=== PATIENT | female | born 1985 | race Caucasian/White ===

== ENCOUNTER → 2017-06-23 | Outpatient (CLI) | payer BC ==
[~2017-06-23] MED LIST: CLR10 PO; OXYC-57 PO; PRENTAB26 PO
--- NOTE | 2017-06-23 09:30 | DIAGNOSTIC IMAGING REPORT ---
RIGHT SHOULDER 3 VIEWS CLINICAL HISTORY: Right shoulder pain. FINDINGS: 3 views of the right shoulder are obtained. No prior studies are available for comparison at the time of dictation. The skeletal structures are well mineralized. No fracture or dislocation is seen. The glenohumeral and acromioclavicular joints are preserved. The overlying soft tissues are within normal limits. Imaged right lung parenchyma appears clear. IMPRESSION: No acute bony abnormality is seen in the right shoulder. Electronically signed by: Chris Ron M.D. 06/23/2017 9:29 AM Dictated Date/Time: 06/23/2017 9:28 AM
== END | disposition home or self-care (01) ==
LOC: C.RDSM 14:46
PROVIDERS: ATTEND Internal Medicine
DX: M25.511 Pain in right shoulder (principal)

== ENCOUNTER 2018-10-06 18:25 | Observation (INO) ==
--- OUTSIDE RECORDS SUMMARY | 2018-10-06 18:28 | External Medical Summary | Continuity of Care Document ---
:1985 Author Name Albina Valentine, Provider Address Unavailable Unavailable , Care Team Providers Name Role Phone Jeison Augustin M.D. Unavailable [email or web address] Unavailable Unavailable Unavailable Unavailable Assessments Assessed Problems:Intraoperative bladder injuryUreteral stone Problems History of renal calculi (V13.01) (Z87.442) Status: Resolved History of Perforation of bladder (596.6) (N32.89) Status: Resolved Encounter for childbirth instruction (V65.49) (Z32.2) Counseling for initiation of control method (V25.02) ( Z30.09) Nausea (787.02) (R11.0) Renal colic (788.0) (N23) Primary female infertility (628.9) (N97.9) History of allergy (V15.09) (Z88.9) Encounter for routine gynecological exam ination with Papanicolaou smear of cervix (V72.31) (Z01.419) Allergies and Adverse Reactions No Known Drug Allergies (Allergy) Medications Loratadine 10 MG Oral Tablet Refills: 0 Vitamins TABS; Take 1 tablet daily Refills: 0 Procedures History of Oral Surgery Tooth Extraction Status: Completed Counseling for initiation of control method Encounter for childbirth instruction History of Renal Lithotripsy Status: Com pleted Immunizations Immunizations not documented Family History Mother Family history of hypertension (V17.49) (Z82.49) Status: Act hever Social History - Smoking Status Unknown if ever smoked Never smoker Interventions Follow-ups/ReferralsFollow-up as needed; Done: 19 Dec 2017Discussion/Summary Annual follow-up for kidney stones; history of bladder injury during Fortunately, she is completely asymptomatic regard to both kidney stones and bladder issuesAt this stage, I believe follow-up as needed is appropriateShe is in agreement Plan of Treatment Planned Observations Planned Goals not documented Results No Known Results Results not documented Encounters Appointment; Jeison Augustin M.D. 01-Dec-2017 16:15 Encounter Diagnosis: Problem not documented
[2018-10-06] MEDS ORDERED: SODIUM CHLORIDE 0.9% 1000ML 1,000 ML IV ONE (18:42)
[2018-10-06 19:05] LABS: Appearance Urine Clear (Clear); Bacteria Urine Automated Negative (Negative); Bilirubin Urine Negative (Negative); Blood Urine Negative (Negative); Cast Urine Automated 0 /lpf (0-5); Color Urine Yellow; Epithelial Cell Urine Auto 20-30 /lpf (0-5); Glucose Urine UA Negative (Negative); Ketones Urine Trace (Negative); Leukocyte Esterase Urine Trace (Negative); Nitrite Urine Negative (Negative); Protein Urine Negative (Negative); RBC Urine Automated 0-4 /hpf (0-4); Specific Gravity Urine 1.012 (1.000-1.030); Urobilinogen Urine Negative (Negative)
[2018-10-06 19:21] LABS: Basophils # (auto) 0.02 K/uL (0-0.2); Basophils % (auto) 0.2 %; Eosinophils # (auto) 0.08 K/uL (0-0.5); Eosinophils % (auto) 0.7 %; Hemoglobin 13.2 g/dL (12.0-16.0); Immature Granulocytes # (auto) 0.03 K/uL (0.00-0.02); Immature Granulocytes % (auto) 0.3 %; Lymphocytes # (auto) 2.82 K/uL (1.2-3.4); Lymphocytes % (auto) 26.3 %; Mean Corpuscular Hgb Conc 34.7 g/dL (32-36); Mean Corpuscular Volume 87.6 fL (80-100); Mean Platelet Volume 10.2 fL (7.4-10.4); Monocytes # (auto) 0.55 K/uL (0.11-0.59); Monocytes % (auto) 5.1 %; Neutrophils # (auto) 7.22 K/uL (1.4-6.5); Neutrophils % (auto) 67.4 %; Platelet Count 267 K/uL (130-400); RDW Coefficient of Variation 12.8 % (11.5-14.5); RDW Standard Deviation 41.3 fL (36.4-46.3); Red Blood Count 4.34 M/uL (4.2-5.4); White Blood Count 10.72 K/uL (4.8-10.8)
[2018-10-06 19:39] LABS: BUN Creatinine Ratio 14.4 (10-20); Bilirubin Direct 0.2 mg/dl (0-0.2); Calcium 8.6 mg/dl (8.5-10.1); Creatinine Clr Calc Pharmacy 79.2 ml/min; Est GFR (African American) 106.6; Potassium 3.6 mmol/L (3.5-5.1)
[2018-10-06 19:42] LABS: Bilirubin,Total 0.7 mg/dl (0.2-1); Total Protein 7.5 gm/dl (6.4-8.2)
[2018-10-06] MEDS ORDERED: IOVERSOL 100ml IV PRN (20:23)
--- NOTE | 2018-10-06 20:52 | CT Scan Report ---
CT OF THE ABDOMEN AND PELVIS WITH CONTRAST CLINICAL HISTORY: Right lower quadrant pain. Evaluate for acute appendicitis. COMPARISON STUDY: CT of the abdomen and pelvis November 05, 2015. KUB October 05, 2015. KUB December 01, 2017. TECHNIQUE: Following IV administration of 95 mL of Optiray-320, axial images of the abdomen and pelvi s were obtained from the lung bases to the proximal femurs. Images were reviewed in the axial, sagitt al, and coronal planes. IV contrast was administered without complication. Automated exposure contro l was utilized for the study. A dose lowering technique was utilized adhering to the principles of A EMMY. CT DOSE: 254.02 mGy.cm FINDINGS: Lung bases are clear. No pneumatosis, free air or portal venous gas is present. Liver, sple en, adrenal glands, kidneys and pancreas are normal. There is no peripancreatic or pericholecystic in filtration. There is no hydronephrosis. The nephrographic are symmetric. Caliber and wall thickness o f small and large bowel are normal. Trace fluid within the pelvis is probably physiologic. A 2.5 cm d ominant follicle within the left ovary is noted. The appendix is slightly dilated and fluid-filled, m easuring 7 mm in caliber. There is no periappendiceal infiltration. Is no free air or abscess. No roderick picious osseous lesions are noted. IMPRESSION: Findings equivocal for early acute appendicitis. Appendix is slightly dilated and fluid- filled. No periappendiceal infiltration. No free air or abscess. Electronically signed by: Ayo Grijalva M.D. 10/06/2018 8:51 PM
[2018-10-06] MEDS ORDERED: metroNIDAZOLE 500 MG/100 ML BAG IV STA (21:01)
[2018-10-06] MEDS ORDERED: cefTRIAXone SODIUM 1,000 MG/50 ML BAG IV STA (21:01)
--- NOTE | 2018-10-06 22:18 | Emergency Department Note ---
Entered by Chester Roy acting as a scribe for Librado Iglesias History of Present Illness General Chief complaint: Abdominal Pain Stated complaint: ABDOMINAL PAIN Time Seen by Provider: 10/06/18 18:37 Source: patient History of Present Illness Onset (ago): hour(s) (this morning) Location: abdomen (RLQ) Pain Consistency: + constant Quality: + other (worsening RLQ pain) Associated symptoms: + other (denies vaginal bleeding or discharge) The patient is a 33 year old female who presents to the Emergency Room with complaints of constant and worsening RLQ abdominal pain beginning this morning. The patient reports that her pain started in her mid-abdomen and soon traveled to her RLQ. She denies vaginal bleeding or discharge. She reports a history of kidney stones, tubal ligation, section, and surgical repair of a bladder tear. She states that she still has her gallbladder and appendix. Home Medications Home Medications Medication Instructions Recorded Confirmed Type No Known Home Medications 10/06/18 10/06/18 History Allergies Allergy/AdvReac Type Severity Reaction Status Date / Time No Known Allergies Allergy Unverified 10/06/18 19:46 Past Med/Surg History Medical History Kidney stone Surgical History S/P section (Resolved) History of tubal ligation Family History Other No significant family history Social History Feels Safe at Home: Yes Smoking Status: Never smoker Review of Systems See HPI for pertinent positives & negatives. and A total of 10 systems reviewed and were otherwise negative Physical Exam Vital Signs Vital Signs - 24 hr 10/06/18 18:28 10/06/18 21:03 Temperature 36.8 C Temperature Source Oral Sepsis Recent Fever Within 48 Hours No Sepsis Action Taken by Nursing No Action Required Pulse Rate 64 Pulse Rate [Right Finger] 61 Pulse Rhythm Regular Pulse Strength Normal Respiratory Rate 20 Respiratory Effort / Characteristics Non-Labored Spontaneous Respiratory Depth Normal Respiratory Pattern Regular Blood Pressure 120/82 Blood Pressure [Left Arm] 116/79 Blood Pressure Mean 94 Blood Pressure Mean [Left Arm] 91 Blood Pressure Position Sitting Pulse Oximetry 100 100 Oxygen Delivery Method Room Air Room Air GENERAL: She is oriented to person, place, and time. She appears well-developed and well-nourished. She does not appear distressed. HENT: Exam performed. Head: Normocephalic and atraumatic. Right Ear: External ear normal. No mastoid tenderness. Left Ear: External ear normal. No mastoid tenderness. Mouth/Throat: The oropharynx is clear and moist. No trismus in the jaw. No dental abscesses or uvula swelling. No oropharyngeal exudate or tonsillar abscesses. EYES: Conjunctivae and EOM are normal. Pupils are equal, round, and reactive to light. Right eye exhibits no discharge. Left eye exhibits no discharge. No scleral icterus. NECK: Normal range of motion. Neck supple. No JVD present. No spinous process tenderness present. No carotid bruit present. No rigidity. No tracheal deviation and normal range of motion present. No Brudzinski's sign and no Kernig's sign noted. CV: Normal rate, regular rhythm, normal heart sounds and intact distal pulses. There is no peripheral edema. Palpable radial pulses bue. PULM/CHEST: Effort normal and breath sounds normal. No respiratory distress. No stridor. She has no wheezes. She has no rales. Chest Wall: She exhibits no tenderness. ABD: The abdomen is soft. Bowel sounds are normal. She has no distension. No mass is present. There is pain on palpation of the RLQ with positive rebound tenderness. There is no guarding, no Alvarez's sign and no tenderness at McBurney's point. Rovsig negative MUSC/SKEL: Normal range of motion. There is no peripheral edema, tenderness or deformity. LYMPH: No cervical adenopathy. NEURO: She is alert and oriented to person, place, and time. She has normal strength. No cranial nerve deficit or sensory deficit. Coordination and gait normal. GCS eye subscore is 4. GCS verbal subscore is 5. GCS motor subscore is 6. cerbellar tests wnl. SKIN: Skin is warm and dry. She is not diaphoretic. PSYCH: She has a normal mood and affect. Her behavior is normal. Judgment and thought content normal. Course 1838: The patient was evaluated in room B5. A complete history and physical examination were performed. 2101: Vital signs stable. Labs within normal limits. CT of the abdomen showed acute appendicitis. I consulted Dr. Villalta General Surgery. He will ev aluate the patient. The patient is being treated with Rocephin and Flagyl IV piggyback started in the emergency department. Administered Medications Ioversol (Optiray 320 100ml) 95 ml IV ONCE PRN PRN Reason: Interaction Checking Stop: 10/10/18 20:22 Last Admin: 10/06/18 20:23 Dose: 95 ml Documented by: [id number] Discontinued Medications Sodium Chloride (Nss 1000ml) 1,000 mls @ 999 mls/hr IV .Q1H1M ONE Stop: 10/06/18 19:42 Last Infusion: 10/06/18 20:28 Dose: 0 mls/hr Documented by: [id number] Admin: 10/06/18 19:17 Dose: 999 mls/hr Documented by: [id number] Metronidazole (Flagyl) 500 mg in 100 mls @ 100 mls/hr IV NOW STA Stop: 10/06/18 22:00 Last Admin: 10/06/18 21:30 Dose: 100 mls/hr Documented by: [id number] Ceftriaxone Sodium (Rocephin) 1,000 mg in 50 mls @ 100 mls/hr IV NOW STA Stop: 10/06/18 21:30 Last Infusion: 10/06/18 22:14 Dose: 0 mls/hr Documented by: [id number] Admin: 10/06/18 21:30 Dose: 100 mls/hr Documented by: [id number] Medical Decision Making Medical Records Attestation: I reviewed the patient's medical records. Home Medications Current Medication List: was personally reviewed by me Laboratory Data Attestation: I reviewed the patient's lab results. Result diagrams: 10/06/18 19:13 10/06/18 19:13 Lab Results 10/06/18 10/06/18 10/06/18 Range/Units 18:45 18:45 19:13 WBC 10.72 (4.8-10.8) K/uL RBC 4.34 (4.2-5.4) M/uL Hgb 13.2 (12.0-16.0) g/dL Hct 38.0 (37-47) % MCV 87.6 (80-100) fL MCH 30.4 (25-34) pg MCHC 34.7 (32-36) g/dL RDW Std Deviation 41.3 (36.4-46.3) fL RDW Coeff of Reed 12.8 (11.5-14.5) % Plt Count 267 (130-400) K/uL MPV 10.2 (7.4-10.4) fL Immature Gran % (Auto) 0.3 % Neut % (Auto) 67.4 % Lymph % (Auto) 26.3 % [place] % (Auto) 5.1 % Eos % (Auto) 0.7 % Baso % (Auto) 0.2 % Immature Gran # (Auto) 0.03 H (0.00-0.02) K/uL Neut # (Auto) 7.22 H (1.4-6.5) K/uL Lymph # (Auto) 2.82 (1.2-3.4) K/uL [place] # (Auto) 0.55 (0.11-0.59) K/uL Eos # (Auto) 0.08 (0-0.5) K/uL Baso # (Auto) 0.02 (0-0.2) K/uL Sodium (136-145) mmol/L Potassium (3.5-5.1) mmol/L Chloride (98-107) mmol/L Carbon Dioxide (21-32) mmol/L Anion Gap (3-11) BUN (7-18) mg/dl Creatinine (0.6-1.2) mg/dl Est Cr Clr Drug Dosing ml/min Est GFR ( Amer) Est GFR (Non-Af Amer) BUN/Creatinine Ratio (10-20) Glucose (70-99) mg/dl Calcium (8.5-10.1) mg/dl Total Bilirubin (0.2-1) mg/dl Direct Bilirubin (0-0.2) mg/dl AST (15-37) U/L ALT (12-78) U/L Alkaline Phosphatase (45-117) U/L Total Protein (6.4-8.2) gm/dl Albumin (3.4-5.0) gm/dl Lipase (73-393) U/L Urine Color Yellow Urine Appearance Clear (Clear) Urine pH 8.0 H (4.5-7.5) Ur Specific [place] 1.012 (1.000-1.030) Urine Protein Negative (Negative) Urine Glucose (UA) Negative (Negative) Urine Ketones Trace H (Negative) Urine Blood Negative (Negative) Urine Nitrite Negative (Negative) Urine Bilirubin Negative (Negative) Urine Urobilinogen Negative (Negative) Ur Leukocyte Esterase Trace H (Negative) Urine WBC (Auto) 1-5 (0-5) /hpf Urine RBC (Auto) 0-4 (0-4) /hpf U Hyaline Cast (Auto) 0 (0-5) /lpf U Epithel Cells (Auto) 20-30 H (0-5) /lpf Urine Bacteria (Auto) Negative (Negative) POC Ur Test NEG (NEG) 10/06/18 Range/Units 19:13 WBC (4.8-10.8) K/uL RBC (4.2-5.4) M/uL Hgb (12.0-16.0) g/dL Hct (37-47) % MCV (80-100) fL MCH (25-34) pg MCHC (32-36) g/dL RDW Std Deviation (36.4-46.3) fL RDW Coeff of Reed (11.5-14.5) % Plt Count (130-400) K/uL MPV (7.4-10.4) fL Immature Gran % (Auto) % Neut % (Auto) % Lymph % (Auto) % [place] % (Auto) % Eos % (Auto) % Baso % (Auto) % Immature Gran # (Auto) (0.00-0.02) K/uL Neut # (Auto) (1.4-6.5) K/uL Lymph # (Auto) (1.2-3.4) K/uL [place] # (Auto) (0.11-0.59) K/uL Eos # (Auto) (0-0.5) K/uL Baso # (Auto) (0-0.2) K/uL Sodium 137 (136-145) mmol/L Potassium 3.6 (3.5-5.1) mmol/L Chloride 107 (98-107) mmol/L Carbon Dioxide 25 (21-32) mmol/L Anion Gap 5.0 (3-11) BUN 12 (7-18) mg/dl Creatinine 0.83 (0.6-1.2) mg/dl Est Cr Clr Drug Dosing 79.2 ml/min Est GFR ( Amer) 106.6 Est GFR (Non-Af Amer) 92.0 BUN/Creatinine Ratio 14.4 (10-20) Glucose 79 (70-99) mg/dl Calcium 8.6 (8.5-10.1) mg/dl Total Bilirubin 0.7 (0.2-1) mg/dl Direct Bilirubin 0.2 (0-0.2) mg/dl AST 11 L (15-37) U/L ALT 18 (12-78) U/L Alkaline Phosphatase 63 (45-117) U/L Total Protein 7.5 (6.4-8.2) gm/dl Albumin 4.0 (3.4-5.0) gm/dl Lipase 129 (73-393) U/L Urine Color Urine Appearance (Clear) Urine pH (4.5-7.5) Ur Specific [place] (1.000-1.030) Urine Protein (Negative) Urine Glucose (UA) (Negative) Urine Ketones (Negative) Urine Blood (Negative) Urine Nitrite (Negative) Urine Bilirubin (Negative) Urine Urobilinogen (Negative) Ur Leukocyte Esterase (Negative) Urine WBC (Auto) (0-5) /hpf Urine RBC (Auto) (0-4) /hpf U Hyaline Cast (Auto) (0-5) /lpf U Epithel Cells (Auto) (0-5) /lpf Urine Bacteria (Auto) (Negative) POC Ur Test (NEG) Imaging Data Radiologist's Impression: Radiology results as stated below per my review and the radiologist's interpretation: CT OF THE ABDOMEN AND PELVIS WITH CONTRAST CLINICAL HISTORY: Right lower quadrant pain. Evaluate for acute appendicitis. COMPARISON STUDY: CT of the abdomen and pelvis November 05, 2015. KUB October 05, 2015. KUB December 01, 2017. TECHNIQUE: Following IV administration of 95 mL of Optiray-320, axial images of the abdomen and pelvis were obtained from the lung bases to the proximal femurs. Images were reviewed in the axial, sagittal, and coronal planes. IV contrast was administered without complication. Automated exposure control was utilized for the study. A dose lowering technique was utilized adhering to the principles of ALARA. CT DOSE: 254.02 mGy.cm FINDINGS: Lung bases are clear. No pneumatosis, free air or portal venous gas is present. Liver, spleen, adrenal glands, kidneys and pancreas are normal. There is no peripancreatic or pericholecystic infiltration. There is no hydronephrosis. The nephrographic are symmetric. Caliber and wall thickness of small and large bowel are normal. Trace fluid within the pelvis is probably physiologic. A 2.5 cm dominant follicle within the left ovary is noted. The appendix is slightly dilated and fluid-filled, measuring 7 mm in caliber. There is no periappendiceal infiltration. Is no free air or abscess. No suspicious osseous lesions are noted. IMPRESSION: Findings equivocal for early acute appendicitis. Appendix is slightly dilated and fluid-filled. No periappendiceal infiltration. No free air or abscess. Electronically signed by: Ayo Grijalva M.D. 10/06/2018 8:51 PM Blood Pressure Blood Pressure Findings: Normal blood pressure Blood Pressure Disposition: did not require urgent referral MDM Narrative Vital signs stable. Labs within normal limits. CT of the abdomen showed acute appendicitis. I consulted Dr. Villalta General Surgery. He will evaluate the patient. The patient is being treated with Rocephin and Flagyl IV piggyback started in the emergency department. Impression & Plan Appendicitis Discharge Plan Visit Data Chief Complaint: Abdominal Pain Stated Complaint: ABDOMINAL PAIN ED Provider: Librado Iglesias Discharge Problem: Appendicitis Patient Disposition: Being Evaluated by Surgeon Forms Stand Alone Forms: Call Back Authorization, My [facility] Prescriptions Prescriptions: No Action No Known Home Medications RF: 0 Referrals Referrals: Dirk Reeves DO [Primary Care Provider] - Discharge Problem: Appendicitis Qualifiers: Appendicitis type: unspecified Qualified Code(s): K37 - Unspecified appendicitis The scribe's documentation has been prepared under my direction and personally reviewed by me in its entirety. I confirm that the note above accurately reflects all work, treatment, procedures, and medical decision making performed by me.
[2018-10-06] MEDS ORDERED: fentaNYL citrate 100 MCG/2 ML VIAL ONE (22:30)
[2018-10-06] MEDS ORDERED: MIDAZOLAM HCL 1 MG/ML 2ML VIAL ONE (22:30)
--- NOTE | 2018-10-06 22:38 | Anesthesiology Consultation ---
Date of Service October 06, 2018 Assessment & Plan Chart Review Chart Review: Acceptable Risk for Surgery (Emergency) and Patient NOT seen in Pre Admission Testing Consults Requested none ASA [id number] Proposed Anesthesia Anesthesia Type: General Risk / Benefits Reviewed With: PT / POA / Parent / Guardian, Accepts Plan and Informed Consent Obtained Additional Comments: R/b of GETA discussed with patient including risk of aspiration. All questions and answered. Pt accepting risks and willing to proceed with procedure. Consent was signed and witnessed History Surgery Operation Date: 10/06/18 22:35 Proposed Procedures p Laparoscopic Appendectomy - Jackson Villalta MD Height/Weight Height: 1.55 m Weight: 59.6 kg Allergies Allergy/AdvReac Type Severity Reaction Status Date / Time No Known Allergies Allergy Unverified 10/06/18 19:46 Medications Home Medications Medication Instructions Recorded Confirmed Last Taken No Known Home Medications 10/06/18 10/06/18 Unknown Active Medications Generic Name Dose Route Start Last Admin Trade Name Freq PRN Reason Stop Dose Admin Ioversol 95 ml 10/06/18 20:23 10/06/18 20:23 Optiray 320 100ml IV 10/10/18 20:22 95 ml ONCE PRN Administration Interaction Checking NPO Date Last Intake of Fluids: 10/06/18 Time Last Intake of Fluids: 18:00 Last Intake of Fluids Comment: 1oz of water Date Last Intake of Solids: 10/06/18 Time Last Intake of Solids: 12:45 Exercise / Class Metabolic Activity II 4-5 Yardwork/Stairs/Walk up hill Past Family History Family History Other No significant family history Past Anesthesia History No Hx of Anesthesia Complications and No Family Hx of Anesthesia Complications History of PONV No Hx of PONV and No Hx of Motion Sickness Social History Smoking Status: Never smoker Do You Dip or Chew Tobacco: No Hx Alcohol Use: No Hx Substance Use: No Review of Systems Respiratory: no cough Cardiovascular: no chest pain with activity and no dyspnea on exertion Gastrointestinal: no nausea and no vomiting Physical Exam Vital Signs Last Vital Signs Temp 36.8 C 10/06/18 18:28 Pulse 50 L 10/06/18 23:08 Resp 16 10/06/18 23:08 BP 105/69 10/06/18 23:08 Pulse Ox 99 10/06/18 23:08 ENMT Mouth: no TMJ abnormality and no TMJ clicking Thyromental Distance: > or= 3.5 Finger Breadths Mallampati Class: II Neck normal visual inspection; neck extension not limited Respiratory Auscultation: lungs clear to auscultation bilaterally Cardiovascular Rate/Rhythm: regular rhythm and + bradycardic (Sinus johnny) Psychiatric Orientation: alert and oriented x 3 Testing Laboratory Results 10/06/18 19:13 10/06/18 19:13 Urine Color Yellow 10/06/18 18:45 Urine Appearance Clear (Clear) 10/06/18 18:45 Urine pH 8.0 (4.5-7.5) H 10/06/18 18:45 Ur Specific [place] 1.012 (1.000-1.030) 10/06/18 18:45 Urine Protein Negative (Negative) 10/06/18 18:45 Urine Glucose (UA) Negative (Negative) 10/06/18 18:45 Urine Ketones Trace (Negative) H 10/06/18 18:45 Urine Nitrite Negative (Negative) 10/06/18 18:45 Ur Leukocyte Esterase Trace (Negative) H 10/06/18 18:45 Urine WBC (Auto) 1-5 /hpf (0-5) 10/06/18 18:45 Urine RBC (Auto) 0-4 /hpf (0-4) 10/06/18 18:45 U Hyaline Cast (Auto) 0 /lpf (0-5) 10/06/18 18:45 U Epithel Cells (Auto) 20-30 /lpf (0-5) H 10/06/18 18:45 Urine Bacteria (Auto) Negative (Negative) 10/06/18 18:45 10/06/18 18:45 POC Ur Test NEG
[2018-10-06] MEDS ORDERED: BUPIVACAINE 0.5 % 5 MG/1 ML MPF 30ML VIAL ONE (23:12)
[2018-10-06] MEDS ORDERED: HEPARIN (PORCINE) 1000 UNIT/ML 10 ML (CATH LAB USE ONLY) ONE (23:13)
[2018-10-06] MEDS ORDERED: CEFAZOLIN 250 MG/ML 1 GM VIAL ONE (23:13)
[2018-10-06] MEDS ORDERED: PROPOFOL IV EMULSION 10 MG/ML 20 ML VIAL IV ONE (23:29)
[2018-10-06] MEDS ORDERED: ONDANSETRON INJ 2 MG/ML 2 ML VIAL ONE (23:29)
[2018-10-06] MEDS ORDERED: SUCCINYLCHOLINE CHLORIDE 20 MG/ML 10 ML VIAL ONE (23:29)
[2018-10-06] MEDS ORDERED: LIDOCAINE HCL 2% 2 ML VIAL/AMP(20MG/ML) INFIL ONE ×2 (23:29)
[2018-10-06] MEDS ORDERED: DEXAMETHASONE SOD INJ 4 MG/ML VIAL ONE (23:29)
[2018-10-06] MEDS ORDERED: PHENYLEPHRINE 100MCG/ML 5ML SYR IV PRN (23:34)
[2018-10-06] MEDS ORDERED: PROMETHAZINE HCL 12.5 MG in SODIUM CHLORIDE 0.9% 50 ML IV PRN (23:34)
[2018-10-06] MEDS ORDERED: ATROPINE SULFATE 0.1 MG/ML 10ML SYR IV PRN (23:34)
[2018-10-06] MEDS ORDERED: ePHEDrine sulfate 50 MG/ML AMP IV PRN (23:34)
[2018-10-06] MEDS ORDERED: ONDANSETRON INJ 2 MG/ML 2 ML VIAL IV PRN (23:34)
[2018-10-06] MEDS ORDERED: HYDROmorphone INJ 1 MG/ML SYRINGE IV PRN (23:34)
--- NOTE | 2018-10-06 23:53 | History & Physical Report ---
Date of Service October 06, 2018 Assessment & Plan (1) Appendicitis: This patient's history, physical findings, laboratories and CT findings are consistent with appendicitis. I reviewed the images as well as the report we discussed options that included admission with antibiotics versus appendec sree. I explained the pros and cons of each of these procedures. I discussed the laparoscopic appendectomy and I explained the possible need to convert to an open procedure. I explained the possible complications associated with those procedures. The patient wishes to go ahead with surgery and has signed a consent form. History of Present Illness Chief Complaint: Right lower quadrant abdominal pain Primary Care Provider: Dirk Reeves DO Is a 33-year-old female who presented to the emergency room with a complaint of right lower quadrant abdominal pain. It began about 14 hours ago in the epigastric area. As the day progressed the pain became more severe. Initially it was more like a dull ache. It also migrated to the right lower quadrant where it is located at the present time. It does not radiate. She is never had pain like this before. Motion does exacerbate the pain. She has not had an appetite all day but she has not had any nausea or vomiting. She denies fever and chills. She has not had a change in her bowel habits. There is no melena or hematochezia. She denies dysuria and hematuria. Allergies Allergy/AdvReac Type Severity Reaction Status Date / Time No Known Allergies Allergy Unverified 10/06/18 19:46 Home Medications Home Medications Medication Instructions Recorded Confirmed Type No Known Home Medications 10/06/18 10/06/18 History Past Med/Surg History Medical History Appendicitis (Acute) Kidney stone Surgical History S/P section (Resolved) X 2 H/O lithotripsy History of tubal ligation S/P bladder repair Family History Other No significant family history Social History Feels Safe at Home: Yes Smoking Status: Never smoker Do You Dip or Chew Tobacco: No Hx Alcohol Use: No Hx Substance Use: No Review of Systems Review of Systems: All systems reviewed & are unremarkable except as noted in HPI & below Physical Exam Constitutional: well developed; no acute distress Neck: trachea midline Respiratory: normal respiratory effort, lungs clear to auscultation Cardiovascular: Rate/Rhythm: regular rate and regular rhythm Gastrointestinal (Abdomen): Inspection/Auscultation: normal bowel sounds; abdomen not distended Percussion/Palpation: + abdomen tender (Right lower quadrant to mild to moderate palpation) and abdomen soft Skin: no rashes, warm and dry Lymphatic: no cervical lymphadenopathy Results & Data Vital Signs (Past 12 Hours) Vital Signs Temp Pulse Pulse Resp BP BP Pulse Ox 10/06/18 23:08 50 L 16 105/69 99 10/06/18 21:03 61 116/79 100 10/06/18 18:28 36.8 C 64 20 120/82 100 Laboratory Results 10/06/18 10/06/18 10/06/18 Range/Units 19:13 19:13 18:45 WBC 10.72 (4.8-10.8) K/uL RBC 4.34 (4.2-5.4) M/uL Hgb 13.2 (12.0-16.0) g/dL Hct 38.0 (37-47) % MCV 87.6 (80-100) fL MCH 30.4 (25-34) pg MCHC 34.7 (32-36) g/dL RDW Std Deviation 41.3 (36.4-46.3) fL RDW Coeff of Reed 12.8 (11.5-14.5) % Plt Count 267 (130-400) K/uL MPV 10.2 (7.4-10.4) fL Immature Gran % (Auto) 0.3 % Neut % (Auto) 67.4 % Lymph % (Auto) 26.3 % [place] % (Auto) 5.1 % Eos % (Auto) 0.7 % Baso % (Auto) 0.2 % Immature Gran # (Auto) 0.03 H (0.00-0.02) K/uL Neut # (Auto) 7.22 H (1.4-6.5) K/uL Lymph # (Auto) 2.82 (1.2-3.4) K/uL [place] # (Auto) 0.55 (0.11-0.59) K/uL Eos # (Auto) 0.08 (0-0.5) K/uL Baso # (Auto) 0.02 (0-0.2) K/uL Sodium 137 (136-145) mmol/L Potassium 3.6 (3.5-5.1) mmol/L Chloride 107 (98-107) mmol/L Carbon Dioxide 25 (21-32) mmol/L Anion Gap 5.0 (3-11) BUN 12 (7-18) mg/dl Creatinine 0.83 (0.6-1.2) mg/dl Est Cr Clr Drug Dosing 79.2 ml/min Est GFR ( Amer) 106.6 Est GFR (Non-Af Amer) 92.0 BUN/Creatinine Ratio 14.4 (10-20) Glucose 79 (70-99) mg/dl Calcium 8.6 (8.5-10.1) mg/dl Total Bilirubin 0.7 (0.2-1) mg/dl Direct Bilirubin 0.2 (0-0.2) mg/dl AST 11 L (15-37) U/L ALT 18 (12-78) U/L Alkaline Phosphatase 63 (45-117) U/L Total Protein 7.5 (6.4-8.2) gm/dl Albumin 4.0 (3.4-5.0) gm/dl Lipase 129 (73-393) U/L Urine Color Urine Appearance (Clear) Urine pH (4.5-7.5) Ur Specific [place] (1.000-1.030) Urine Protein (Negative) Urine Glucose (UA) (Negative) Urine Ketones (Negative) Urine Blood (Negative) Urine Nitrite (Negative) Urine Bilirubin (Negative) Urine Urobilinogen (Negative) Ur Leukocyte Esterase (Negative) Urine WBC (Auto) (0-5) /hpf Urine RBC (Auto) (0-4) /hpf U Hyaline Cast (Auto) (0-5) /lpf U Epithel Cells (Auto) (0-5) /lpf Urine Bacteria (Auto) (Negative) POC Ur Test NEG (NEG) 10/06/18 Range/Units 18:45 WBC (4.8-10.8) K/uL RBC (4.2-5.4) M/uL Hgb (12.0-16.0) g/dL Hct (37-47) % MCV (80-100) fL MCH (25-34) pg MCHC (32-36) g/dL RDW Std Deviation (36.4-46.3) fL RDW Coeff of Reed (11.5-14.5) % Plt Count (130-400) K/uL MPV (7.4-10.4) fL Immature Gran % (Auto) % Neut % (Auto) % Lymph % (Auto) % [place] % (Auto) % Eos % (Auto) % Baso % (Auto) % Immature Gran # (Auto) (0.00-0.02) K/uL Neut # (Auto) (1.4-6.5) K/uL Lymph # (Auto) (1.2-3.4) K/uL [place] # (Auto) (0.11-0.59) K/uL Eos # (Auto) (0-0.5) K/uL Baso # (Auto) (0-0.2) K/uL Sodium (136-145) mmol/L Potassium (3.5-5.1) mmol/L Chloride (98-107) mmol/L Carbon Dioxide (21-32) mmol/L Anion Gap (3-11) BUN (7-18) mg/dl Creatinine (0.6-1.2) mg/dl Est Cr Clr Drug Dosing ml/min Est GFR ( Amer) Est GFR (Non-Af Amer) BUN/Creatinine Ratio (10-20) Glucose (70-99) mg/dl Calcium (8.5-10.1) mg/dl Total Bilirubin (0.2-1) mg/dl Direct Bilirubin (0-0.2) mg/dl AST (15-37) U/L ALT (12-78) U/L Alkaline Phosphatase (45-117) U/L Total Protein (6.4-8.2) gm/dl Albumin (3.4-5.0) gm/dl Lipase (73-393) U/L Urine Color Yellow Urine Appearance Clear (Clear) Urine pH 8.0 H (4.5-7.5) Ur Specific [place] 1.012 (1.000-1.030) Urine Protein Negative (Negative) Urine Glucose (UA) Negative (Negative) Urine Ketones Trace H (Negative) Urine Blood Negative (Negative) Urine Nitrite Negative (Negative) Urine Bilirubin Negative (Negative) Urine Urobilinogen Negative (Negative) Ur Leukocyte Esterase Trace H (Negative) Urine WBC (Auto) 1-5 (0-5) /hpf Urine RBC (Auto) 0-4 (0-4) /hpf U Hyaline Cast (Auto) 0 (0-5) /lpf U Epithel Cells (Auto) 20-30 H (0-5) /lpf Urine Bacteria (Auto) Negative (Negative) POC Ur Test (NEG) Diagnostic Findings [place], [place] [phone] CT Scan Report Patient: ROBERT BENÍTEZ Date: 10/06/18 MR#: [id number]: [address] Acct ID:[id number]: Date: 1985City Zip: [place] [address] Age: 33Location: ED Sex: F Room/Bed: Att Phy: Diagnosis: ABDOMINAL PAIN Hayley Phy: Dirk Reeves D.O.Service Date: 10/06/18 Fam Phy: Interpreting Phy: Ayo Grijalva MD Admit Phy: Ordering Phy: Librado Iglesias M.D. cc: ~ CT OF THE ABDOMEN AND PELVIS WITH CONTRAST CLINICAL HISTORY: Right lower quadrant pain. Evaluate for acute appendicitis. COMPARISON STUDY: CT of the abdomen and pelvis November 05, 2015. KUB October 05, 2015. KUB December 01, 2017. TECHNIQUE: Following IV administration of 95 mL of Optiray-320, axial images of the abdomen and pelvis were obtained from the lung bases to the proximal femurs. Images were reviewed in the axial, sagittal, and coronal planes. IV contrast was administered without complication. Automated exposure control was utilized for the study. A dose lowering technique was utilized adhering to the principles of ALARA. CT DOSE: 254.02 mGy.cm FINDINGS: Lung bases are clear. No pneumatosis, free air or portal venous gas is present. Liver, spleen, adrenal glands, kidneys and pancreas are normal. There is no peripancreatic or pericholecystic infiltration. There is no hydronephrosis. The nephrographic are symmetric. Caliber and wall thickness of small and large bowel are normal. Trace fluid within the pelvis is probably physiologic. A 2.5 cm dominant follicle within the left ovary is noted. The appendix is slightly dilated and fluid-filled, measuring 7 mm in caliber. There is no periappendiceal infiltration. Is no free air or abscess. No suspicious osseous lesions are noted. IMPRESSION: Findings equivocal for early acute appendicitis. Appendix is slightly dilated and fluid-filled. No periappendiceal infiltration. No free air or abscess. (1) Appendicitis Appendicitis type: unspecified Qualified Code(s): K37 - Unspecified appendicitis
[2018-10-07] MEDS ORDERED: GLYCOPYRROLATE 0.2 MG/ML VIAL ONE (00:29)
[2018-10-07] MEDS ORDERED: NEOSTIGMINE METHYLSULFATE 5 MG/5 ML SYR ONE (00:29)
--- NOTE | 2018-10-07 01:20 | Post Operative Brief Note ---
Immediate Post Op Note v1 Date of Surgery October 07, 2018 Pre & Post Diagnosis Operation Date: 10/06/18 22:35 Pre-Op Diagnosis: Appendicitis Post-Op Diagnosis: Appendicitis Procedure Operation Date: 10/06/18 22:35 Actual Procedures p Laparoscopic Appendectomy(Not Applicable) - Jackson Villalta MD Surgeon Jackson Villalta MD Web Administrator None Estimated Blood Loss 5 Findings Consistent with Post-Op Diagnosis Specimens Appendix Drains Hodges Catheter (inserted by Ryan Khan RN and removed at end of procedure) Complications none
[2018-10-07] MEDS ORDERED: fentaNYL citrate 100 MCG/2 ML VIAL ONE (01:43)
[2018-10-07] MEDS: fentaNYL citrate 100 MCG/2 ML VIAL IV PRN ×2 (01:44→01:56)
--- NOTE | 2018-10-07 02:06 | Operative Report ---
DATE OF OPERATION: 10/07/2018 PREOPERATIVE DIAGNOSIS: Appendicitis. POSTOPERATIVE DIAGNOSIS: Appendicitis. PROCEDURE: Laparoscopic appendectomy. SURGEON: Jackson Villalta MD FINDINGS: The appendix was mildly dilated. It was firm and hyperemic. The base of the appendix and the cecum at the base of the appendix were normal. The visible bowel appeared normal. The uterus was oval in shape and was adherent to the anterior abdominal wall. There was a small cyst on the right ovary and the large cyst on the left ovary. The visible bowel appeared normal. TECHNIQUE: The patient was given a general anesthetic and the area is prepped and draped in usual sterile fashion. Transverse incision was made below the umbilicus, carried down through the subcutaneous tissue to the fascia which was grasped with 2 Duarte clamps and incised between. The peritoneum was identified, incised, and the introducer was placed bluntly. The abdomen was then insufflated to a pressure of 15 mmHg with carbon dioxide. The uterus was seen adherent to the anterior abdominal wall. Therefore, I went to the right of that and made an incision through the previous scar and placed a 5 mm introducer under direct vision without difficulty. The right lower quadrant was inspected. Medial traction was placed on the cecum and the appendix was identified. The left lower quadrant introducer was then placed under direct vision. Traction was placed anteriorly on the appendix. There were some adhesions to the lateral and posterior abdominal wall that were flimsy. These were divided bluntly. That allowed me to further elevate the appendix away from the surrounding structures including the cecum. It allowed me to identify the base of the appendix. I was then able to establish a plane between the base of the appendix and the mesoappendix and divided the mesoappendix with the Endo-VERENICE stapler. That allowed me to confirm I was at the base of the appendix which was then amputated off the cecum with the Endo-VERENICE stapler. The appendix was placed into an Endobag and brought out through the left lower quadrant introducer site. The introducer was replaced. The right lower quadrant was inspected. The 2 staple lines were inspected and there was no bleeding. There was small amount of blood in the pelvis. It appeared to have come from the left lower quadrant introducer site, but there was no active bleeding. That blood was removed. The pelvis structures were photographed. The right upper quadrant was inspected. There was no fluid there. The staple lines were again inspected and there was no bleeding. The gas was allowed to escape and introducers were removed. The fascia of the umbilical and left lower quadrant introducer sites was closed with interrupted 0 Vicryl and the skin of all the incisions was closed with 4-0 Monocryl in either an interrupted or running subcuticular fashion. The skin was anesthetized with 0.5% Marcaine. The skin was cleansed, dried, benzoin placed, Steri-Strips applied. Estimated blood loss was 5 mL. Sponge, needle and instrument counts were correct prior to closure. The patient tolerated the surgical procedure without complication and was transferred to recovery. I attest to the content of the Intraoperative Record and any orders documented therein. Any exception s are noted below.
--- NOTE | 2018-10-07 02:23 | Anesthesiology Progress Note ---
Date of Service October 07, 2018 Anesthesia Post Procedure Vital Signs Vital Signs: Temp Pulse Pulse Resp BP BP Pulse Ox 10/07/18 02:15 58 L 16 112/73 97 10/07/18 02:05 36.7 C 52 L 16 113/72 97 10/07/18 01:55 52 L 16 121/84 100 10/07/18 01:45 53 L 16 117/78 100 10/07/18 01:35 36.4 C L 53 L 14 107/64 100 10/07/18 01:25 36.4 C L 53 L 14 103/65 100 10/06/18 23:08 50 L 16 105/69 99 10/06/18 21:03 61 116/79 100 10/06/18 18:28 36.8 C 64 20 120/82 100 Pain Intensity Right Lower Abdomen: Pain Intensity: 2 Transfer of Care Handoff Completed per policy Notes Mental Status: alert / awake / arousable Patient Amnestic to Procedure: Yes Nausea / Vomiting: adequately controlled Pain: adequately controlled Airway Patency, RR, SpO2: stable & adequate BP & HR: stable & adequate Hydration State: stable & adequate Anesthetic Complications: no major complications apparent
[2018-10-07] MEDS ORDERED: ONDANSETRON INJ 2 MG/ML 2 ML VIAL IV PRN (02:38)
[2018-10-07] MEDS ORDERED: OXYCODONE/ACETAMINOPHEN 5mg/325mg TAB PO PRN (02:38)
[2018-10-07] MEDS ORDERED: MoRPHine SULFATE 4 MG/ML 1 ML CARP\\VIAL IV PRN (02:38)
[2018-10-07] MEDS ORDERED: D5W AND 1/2NSS + 20MEQ KCL 20 MEQ/1,000 ML BAG IV SCH (03:00)
--- NOTE | 2018-10-07 09:00 | Surgery Progress Note ---
Date of Service October 07, 2018 Assessment & Plan (1) Appendicitis: Postop day 0, status post laparoscopic appendectomy Pain under good control at this time No nausea and tolerating regular diet Can discharge to home Instructions discussed Follow-up in 2 weeks Subjective Postoperative day 0 Had nausea and pain that was more difficult to control last night but the present time she describes pain of 1 out of 10 and her last analgesic dose was a t least 5 hours ago Nausea has resolved Tolerated a regular breakfast this morning Physical Exam Gastrointestinal (Abdomen): Inspection/Auscultation: normal bowel sounds; abdomen not distended Percussion/Palpation: + abdomen tender (Mild) and abdomen soft Results & Data Vital Signs (Past 12 Hours) Vital Signs Temp Pulse Resp BP Pulse Ox 10/07/18 07:45 36.6 C 54 L 16 106/68 99 10/07/18 05:20 36.8 C 70 18 119/72 96 10/07/18 02:50 36.6 C 63 16 112/75 97 10/07/18 02:30 36.9 C 62 16 112/74 98 10/07/18 02:15 58 L 16 112/73 97 10/07/18 02:05 36.7 C 52 L 16 113/72 97 10/07/18 01:55 52 L 16 121/84 100 10/07/18 01:45 53 L 16 117/78 100 10/07/18 01:35 36.4 C L 53 L 14 107/64 100 10/07/18 01:25 36.4 C L 53 L 14 103/65 100 10/06/18 23:08 50 L 16 105/69 99 10/06/18 21:03 61 116/79 100 (1) Appendicitis Appendicitis type: unspecified Qualified Code(s): K37 - Unspecified appendicitis
--- NOTE | 2018-10-08 15:48 | Discharge Summary ---
Date of Service October 08, 2018 Admission HPI Per Admitting Provider Is a 33-year-old female who presented to the emergency room with a complaint of right lower quadrant abdominal pain. It began about 14 hours ago in the epigastric area. As the day progressed the pain became more severe. Initially it was more like a dull ache. It also migrated to the right lower quadrant where it is located at the present time. It does not radiate. She is never had pain like this before. Motion does exacerbate the pain. She has not had an appetite all day but she has not had any nausea or vomiting. She denies fever and chills. She has not had a change in her bowel habits. There is no melena or hematochezia. She denies dysuria and hematuria. Principal Diagnosis acute appendicitis large left ovarian cyst Discharge Data Allergies Allergy/AdvReac Type Severity Reaction Status Date / Time No Known Allergies Allergy Unverified 10/06/18 19:46 Consultations 10/06/18 21:02 ED Decision to Admit Stat Procedures Performed Operation Date: 10/06/18 22:35 Actual Procedures p Laparoscopic Appendectomy(Not Applicable) - Jackson Villalta MD Ordered Studies 10/06/18 18:43 CT abd pelvis IV con only Stat Hospital Course (1) Appendicitis: Patient was taken to operating room for laparoscopic appendectomy possible open by Dr. Villalta. Patient found to have acute appendicitis without perforation or abscess. Patient's uterus was adhered to the anterior abdominal wall and she also had a very large left ovarian cyst. Patient tolerated procedure well and was transferred to recovery and then to medical/surgical floor for postop care. Diet was advanced to regular diet. IV fluids, PO Percocet , IV Zofran , activity as tolerated were continued. Postop day 0, patient doing well. Vitals stable. minimal pain. No nausea or vomiting. Tolerating regular diet. Patient was discharged home on POD # 0 in stable condition. Advised to follow-up with PCP in regards to getting set up with preventive maintenance coordinator to further evaluate ovarian cysts. Total Time Total Time Spent Total Time Spent (In Minutes): 15 Total Time Includes: Examination of the Patient, Discharge Planning and Medication Reconciliation Discharge Plan Discharge Items Patient Disposition: Home - Self-Care Reason For Visit: APPENDITICITIS Discharge Diagnosis: Same Large Left Ovarian Cyst Right Ovarian Cyst Discharge Goals: Decrease discomfort and Improve function Activity: Per 'Additional Instructions' section Non-emergency contact: Surgeon Call non-emergency contact if: your symptoms worsen, your pain is not controlled, your pain is worsening, your pain is concerning for you, you have a fever, your temperature is above 101, your wound has increased redness and your wound has increased drainage Follow-up/Referrals: Dirk Reeves, [Primary Care Provider] - Diet: Regular Addtl Provider Instructions: Post-Surgical ~Discharge Instructions Activity Recommendations: - lifting limitation: (10 pounds for 2 weeks), - exercise/sex/sports limit: (nonstrenuous for 2 weeks), - driving or machine use limit: (none for 1 week), - Shower/bathe limit: (may shower beginning tomorrow) Diet: - Resume previous diet SPECIAL CARE INSTRUCTIONS: - May shower in 24 hours. Let water run over area and pat dry. - Leave steri strips on for one week. - Call the surgeon's office with any questions or concerns - - (ex. temperature higher than 101 degrees F, excessive bleeding or pain). MEDICATIONS: - Resume previous medications unless instructed otherwise by your surgeon. - Ibuprofen 600 mg every 6 hours with food - May take Extra strength Tylenol (650 mg) as needed for mild pain - Percocet 1 every 4 hours, as needed for pain FOLLOW UP VISIT: - If not already scheduled, please call the office to schedule a two week follow-up appointment. Office number - Also recommend discussing with your primary care doctor in regards to getting established with Distribution [facility] Associate to evaluate ovarian cysts. Prescriptions: New oxycodone-acetaminophen 5-325 mg tablet 1 tab PO Q4H Qty: 5 RF: 0 No Action No Known Home Medications RF: 0 Stand-Alone Forms: Call Back Authorization, Count Includes [facility] Discharge Orders: Discharge Order (Routine); Ordered 10/07/18 Ordered By: Abby Obrien Admission Data Admit Date/Time: 10/07/18 01:20 Attending Provider: Jackson Villalta Admit Provider: Jackson Villalta Primary Care Provider: Dirk Reeves Other Providers: Jackson Villalta Service: Surgical Services Other Interventions: Discharge Summary Assessment (RN) Last Done: 10/07/18 10:03 Pending Studies at Discharge: Yes (Appendix pathology will be discussed at follow-up ) DC Date/Time DO NOT enter until pt leaves facility: 10/07/18 10:32
== END 2018-10-07 10:32 | disposition home or self-care (01) ==
LOC: ED 18:25 → OR 23:44 → 3W 23:44
DX: K35.80 Unspecified acute appendicitis